=== PATIENT | female | born 1985 | race Caucasian/White ===

== ENCOUNTER 2017-03-12 08:22 | Emergency (ER) | payer SELFPAY ==
[2017-03-12 08:22] VITALS: BMI 37.5
[2017-03-12 08:29] VITALS: RESP 18; TEMP 98.3; O2SAT 99
--- NOTE | 2017-03-12 09:34 | ED PDOC ---
HPI: Abdomen Time Seen by Provider: 03/12/17 09:17 Chief Complaint (Nursing): GI Problem Chief Complaint (Provider): Abdominal pain History Per: Patient History/Exam Limitations: no limitations Onset/Duration Of Symptoms: Days (1), Intermittent Episodes Outside of [place] travel?: No Current Symptoms Are (Timing): Intermittent Episodes Pain Scale Rating Of: 8 Location Of Pain/Discomfort: Periumbilical Quality Of Discomfort: Sharp Associated Symptoms: Chills, Nausea, Vomiting, Diarrhea. denies: Fever, Back Pain, Chest Pain, Urinary Symptoms Exacerbating Factors: Food Alleviating Factors: None Last Bowel Movement: Today Additional Complaint(s): 31 year old female with past medical history of gallstones and kidney stones presents to ED with abdominal pain associated with vomiting and diarrhea. Patient states after eating soup last night, patient began with periumbilical pain, intermittent episodes with sharp pain 8/10 in severity that does not radiate. Patient states vomiting began at that time as well, 4-5 times nb/nb. Patient states diarrhea 4-5 times as well. Unable to tolerate PO at this time. Pertinent positives included chills last night. Denies brbrpr, melena, fever, hematuria, dysuria, back pain, chest pain, sob, headache, vaginal discharge. No sick contacts or recent travel. PMD: None Abnormal Vaginal Bleeding: No Last Menstral Period: 02/10/2017 : 3 Para: 3 Past Medical History Reviewed: Historical Data, Nursing Documentation, Vital Signs Vital Signs: Last Vital Signs Temp 98.3 F 03/12/17 08:29 Pulse 84 03/12/17 08:29 Resp 18 03/12/17 08:29 BP 111/64 03/12/17 08:29 Pulse Ox 99 03/12/17 09:53 - Medical History PMH: Gall Bladder Disease (gallstones), Kidney Stones - Family History Family History: States: No Known Family Hx - Home Medications Home Medications: Ambulatory Orders Medication Instructions Recorded Patient Own Med [Patient Own Med] 1 tab PO DAILY 03/18/15 Cyclobenzaprine [Cyclobenzaprine 10 mg PO TID #10 tab 06/02/16 HCl] Naproxen [Naprosyn] 500 mg PO Q12H #20 tab 06/02/16 Sulfamethoxazole/Trimethoprim 1 tab PO BID #20 tab 03/12/17 [Bactrim DS 800 mg-160 mg] - Allergies Allergies/Adverse Reactions: Allergies Allergy/AdvReac Type Severity Reaction Status Date / Time No Known Allergies Allergy Verified 03/18/15 07:54 Review of Systems ROS Statement: Except As Marked, All Systems Reviewed And Found Negative Constitutional: Positive for: Chills Gastrointestinal: Positive for: Nausea, Vomiting, Abdominal Pain, Diarrhea Physical Exam - Reviewed Nursing Documentation Reviewed: Yes Vital Signs Reviewed: Yes - Physical Exam Appears: Positive for: Well, Non-toxic, No Acute Distress Head Exam: Positive for: ATRAUMATIC, NORMAL INSPECTION, NORMOCEPHALIC Skin: Positive for: Normal Color, Warm, Dry Eye Exam: Positive for: Normal appearance, EOMI ENT: Positive for: Normal ENT Inspection, Pharynx Is (normal) Neck: Positive for: Normal, Painless ROM, Supple Cardiovascular/Chest: Positive for: Regular Rate, Rhythm Respiratory: Positive for: Normal Breath Sounds Gastrointestinal/Abdominal: Positive for: Bowel Sounds (normal), Soft, Tenderness (mild omega-umbilical), Other (psoas, obturator, and rovsing signs negative. NO RLQ/LLQ tenderness). Negative for: Organomegaly, Distended, Guarding, Rebound Back: Positive for: Normal Inspection. Negative for: L CVA Tenderness, R CVA Tenderness Extremity: Positive for: Normal ROM. 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 DDx includes but not limited to gastroenteritis, gastritis, colitis, uti Plan: * CBC * CMP * LIPASE * URINE DIPSTICK * URINE PREG * UA * ZOFRAN 4MG * MORPHINE 2MG * PEPCID 20MG * NS 1L * REEVAL Time: 1100 Patient re-examined and re-evaluated. Patient states improved symptoms. Abdominal exam improved. Labs indicative of UTI, discharge home, prescribed Bactrim DS at this time and follow up with PCP in 2-3 days without fail. Disposition - Clinical Impression Clinical Impression: UTI (urinary tract infection) - Patient ED Disposition Is Patient to be Admitted: No Counseled Patient/Family Regarding: Studies Performed, Diagnosis, Need For Followup, Rx Given - Disposition Referrals: [facility] [Outside] Disposition Time: 11:14 Condition: STABLE Prescriptions: Sulfamethoxazole/Trimethoprim [Bactrim DS 800 mg-160 mg] 1 tab PO BID #20 tab Instructions: Urinary Tract Infection in Women (ED)
[2017-03-12] MEDS ORDERED: Sodium Chloride 0.9% 1,000 ML IV SCH (09:45)
[2017-03-12 10:11] LABS: BASO % 0.2 % (0.0-2.0); EOS % 0.1 % (0.0-4.0); HEMATOCRIT 33.7 % (34.0-47.0); LYMPH # 0.7 K/uL (1.0-4.3); LYMPH % 9.1 % (20.0-40.0); MEAN CELL VOLUME 75.8 fl (81.0-99.0); MONO # 0.3 K/uL (0.0-0.8); MONO % 3.9 % (0.0-10.0); NEUT % 86.7 % (50.0-75.0); PLATELET COUNT 451 K/uL (130-400); RED CELL DISTRIBUTION WIDTH 15.3 % (11.5-14.5)
[2017-03-12 10:25] LABS: ALKALINE PHOSPHATASE 107 U/L (38-126); ALT/SGPT 23 U/L (9-52); AMYLASE 77 U/L (30-110); AST/SGOT 26 U/L (14-36); BILIRUBIN,TOTAL 0.7 mg/dl (0.2-1.3); BLOOD UREA NITROGEN 8 mg/dl (7-17); CARBON DIOXIDE 24 mmol/L (22-30); CHLORIDE 107 mmol/L (98-107); GFR AFRICAN-AMERICAN > 60; GLUCOSE,RANDOM 106 mg/dL (65-105); LIPASE 86 U/L (23-300); POTASSIUM 4.4 MMOL/L (3.6-5.0); SODIUM 141 mmol/l (132-148); TOTAL PROTEIN 7.7 G/DL (6.3-8.2)
[2017-03-12 10:47] LABS: RBC URINE 2 /hpf (0-3); URINE BACTERIA MOD (<OCC); URINE BILIRUBIN NEGATIVE (NEGATIVE); URINE BLOOD NEGATIVE (NEGATIVE); URINE COLOR YELLOW (YELLOW); URINE GLUCOSE (UA) NEG (Normal); URINE KETONE TRACE mg/dL (NEGATIVE); URINE LEUKOCYTE ESTERASE SMALL Leu/uL (Negative); URINE PROTEIN 30 mg/dL (NEGATIVE); URINE UROBILINOGEN 0.2-1.0 mg/dL (0.2-1.0); WBC URINE 28 /hpf (0-5)
[2017-03-12 11:28] VITALS: BP 100/73; PULSE 79
[2017-03-12 11:28] LABS: BASOPHIL 1 % (0-2); LARGE PLATELETS PRESENT; NEUTROPHIL 86 % (42-75); REACTIVE LYMPHOCYTES 1 % (0-0); TOTAL CELLS COUNTED 100
== END 2017-03-12 11:15 | disposition home or self-care (01) ==
LOC: H.ER 08:22
DX: N39.0 Urinary tract infection, site not specified (principal); R11.2 Nausea with vomiting, unspecified; R19.7 Diarrhea, unspecified
CPT/HCPCS: 80053; 81003; 81025; 82150; 83690; 85025; 96361; 96374; 96375; 99285; J2270; J2405; J7040

== ENCOUNTER 2017-08-18 01:05 | Emergency (ER) | payer MEDICAID ==
[2017-08-18 01:06] VITALS: BMI 37.5
[2017-08-18 01:26] VITALS: BP 139/83; PULSE 101; RESP 16; TEMP 98.4; O2SAT 98
[2017-08-18] MEDS ORDERED: DiphenhydrAMINE 50 mg/ml Inj IVP STA (02:11)
[2017-08-18] MEDS ORDERED: DiphenhydrAMINE 50 mg/ml Inj ONE (02:15)
[2017-08-18 02:38] LABS: BASO % 0.4 % (0.0-2.0); EOS # 0.3 K/uL (0.0-0.7); EOS % 3.1 % (0.0-4.0); HEMATOCRIT 31.2 % (34.0-47.0); LYMPH % 18.7 % (20.0-40.0); MEAN CELL VOLUME 77.9 fl (81.0-99.0); MEAN CORPUSCULAR HGB CONC 32.1 g/dL (33.0-37.0); MONO # 0.8 K/uL (0.0-0.8); MONO % 7.7 % (0.0-10.0); NEUT # 7.5 K/uL (1.8-7.0); NEUT % 70.1 % (50.0-75.0); NRBC % 0.1 % (0.0-0.0); RED CELL DISTRIBUTION WIDTH 15.1 % (11.5-14.5); WHITE BLOOD COUNT 10.6 K/uL (4.8-10.8)
[2017-08-18 02:45] LABS: BLOOD UREA NITROGEN 11 mg/dl (7-17); CALCIUM 8.6 mg/dL (8.4-10.2); CARBON DIOXIDE 30 mmol/L (22-30); CHLORIDE 104 mmol/L (98-107); GFR AFRICAN-AMERICAN > 60; GLUCOSE,RANDOM 113 mg/dL (65-105); POTASSIUM 3.5 MMOL/L (3.6-5.0); SODIUM 143 mmol/l (132-148)
--- NOTE | 2017-08-18 02:50 | ED PDOC ---
HPI: Allergic Reaction Time Seen by Provider: 08/18/17 01:55 Chief Complaint (Nursing): Dental Pain Chief Complaint (Provider): Facial Swelling History Per: Patient History/Exam Limitations: no limitations Onset/Duration Of Symptoms: Hrs (since last afternoon) Current Symptoms Are (Timing): Still Present Possible Cause: Unknown Associated Symptoms: Swelling (facial swelling) Home/EMS Treatment: None Additional Complaint(s): 32 year old female presents to ED with complaints of right sided facial swelling since last afternoon and has a past medical history of gall bladder disease. (-) pain, headache, or fever. Patient denies having allergies or exposure to chemicals/new foods. PCP: Non [facility] Provider Past Medical History Reviewed: Historical Data, Nursing Documentation, Vital Signs Vital Signs: Last Vital Signs Temp 98.4 F 08/18/17 01:24 Pulse 101 H 08/18/17 01:24 Resp 16 08/18/17 01:24 BP 139/83 08/18/17 01:24 Pulse Ox 98 08/18/17 01:24 - Medical History PMH: Gall Bladder Disease (gallstones), Kidney Stones - Surgical History Surgical History: - Family History Family History: States: Unknown Family Hx - Living Arrangements Living Arrangements: With Family - Social History Current smoker - smoking cessation education provided: No Ex-Smoker (has not smoked in the last 12 months): No Alcohol: None Drugs: Denies - Home Medications Home Medications: Ambulatory Orders Medication Instructions Recorded Patient Own Med [Patient Own Med] 1 tab PO DAILY 03/18/15 Cyclobenzaprine [Cyclobenzaprine 10 mg PO TID #10 tab 06/02/16 HCl] Naproxen [Naprosyn] 500 mg PO Q12H #20 tab 06/02/16 Sulfamethoxazole/Trimethoprim 1 tab PO BID #20 tab 03/12/17 [Bactrim DS 800 mg-160 mg] Clindamycin [Cleocin] 300 mg PO TID 7 Days cap 08/18/17 Ibuprofen [Motrin Tab] 600 mg PO Q6 #30 tab 08/18/17 - Allergies Allergies/Adverse Reactions: Allergies Allergy/AdvReac Type Severity Reaction Status Date / Time No Known Allergies Allergy Verified 03/18/15 07:54 Review of Systems ROS Statement: Except As Marked, All Systems Reviewed And Found Negative Constitutional: Negative for: Fever Musculoskeletal: Negative for: Other ((-) facial pain) Skin: Positive for: Other ((+) right sided facial swelling) Neurological: Negative for: Headache Physical Exam - Reviewed Nursing Documentation Reviewed: Yes Vital Signs Reviewed: Yes - Physical Exam Appears: Positive for: Non-toxic, No Acute Distress Head Exam: Positive for: ATRAUMATIC, NORMOCEPHALIC Skin: Positive for: Warm, Dry. Negative for: Normal Color ((+) right sided facial swelling. (-) erythema, tenderness, or palpable collection) Eye Exam: Positive for: Normal appearance ENT: Positive for: Normal ENT Inspection Neck: Positive for: Normal Cardiovascular/Chest: Positive for: Regular Rate, Rhythm. Negative for: Murmur Respiratory: Positive for: Normal Breath Sounds. Negative for: Respiratory Distress Gastrointestinal/Abdominal: Positive for: Normal Exam Neurologic/Psych: Positive for: Alert, Oriented. Negative for: Motor/Sensory Deficits - Laboratory Results Result Diagrams: 08/18/17 02:32 08/18/17 02:32 - ECG O2 Sat by Pulse Oximetry: 98 Disposition - Clinical Impression Clinical Impression: Dental abscess - Patient ED Disposition Is Patient to be Admitted: No - Disposition Disposition: Routine/Home Disposition Time: 05:45 Condition: STABLE Prescriptions: Clindamycin [Cleocin] 300 mg PO TID 7 Days cap Ibuprofen [Motrin Tab] 600 mg PO Q6 #30 tab Instructions: Dental Abscess (ED) Forms: [employer] (Wolof) Medical Decision Making Medical Decision Makin Initial impression: allergic reaction v facial abscess Initial plan: * Labs * Benadryl 50mg IVP * Pepcid 20mg IVP * Solumedrol 125mg IVP * Re-eval 0545 CT FINDINGS Bones/joints: No acute fracture. Soft tissues: There is right omega-maxillary and perimandibular soft tissue swelling with infiltration representing cellulitis. There is inflammatory change around the right-sided disintegrator feeder muscles may represent myositis secondary to dental disease. Correlation with clinical examination is recommended. Lymph nodes: Submental submandibular and cervical chain lymph nodes. Orbits: Unremarkable. Sinuses: Mild bilateral maxillary sinus disease. Left maxillary sinus mucous retention cyst and/or polyp. No air-fluid levels. Dental: There is carious destruction of the left mandibular third molar with periapical lucency. There are multiple carious destruction of the teeth involving the right maxilla and the maxillary anterior teeth with periapical abscess. There is possible right maxillary mucobuccal fold heterogeneous hypodensity which is asymmetrically prominent as compared to the left seen on image 21 series 604. The possibility of extension of the dental abscess into the mucobuccal fold cannot be excluded if clinically suspected. Correlation with physical examination is recommended. Right maxillary periodontal and periapical lucency as well as bilateral mandibular lucencies along the premolars representing multifocal dental abscess versus periodontal disease. There is evidence of an endodontic treatment of the maxillary anterior teeth. The visualized portions of the brain appears unremarkable. IMPRESSION: 1. There is carious destruction of the left mandibular third molar with periapical lucency. There are multiple carious destruction of the teeth involving the right maxilla and the maxillary anterior teeth with periapical abscess. 2. There is right omega-maxillary and perimandibular soft tissue swelling with infiltration representing cellulitis. There is inflammatory change around the right-sided disintegrator feeder muscles may represent myositis secondary to dental disease. Correlation with clinical examination is recommended. 3. There is possible right maxillary mucobuccal fold heterogeneous hypodensity which is asymmetrically prominent as compared to the left seen on image 21 series 604. The possibility of extension of the dental abscess into the mucobuccal fold cannot be excluded if clinically suspected. Correlation with physical examination is recommended. Upon re-evaluation, patient states that she is feeling better. Patient is stable for discharge home and will follow up with a dentist later today. Scribe Attestation: Documented by Tamra Hallman acting as a scribe for Danielito Del Rosario MD. Scribe Attestation: All medical record entries made by the Scribe were at my direction and personally dictated by me. I have reviewed the chart and agree that the record accurately reflects my personal performance of the history, physical exam, medical decision making, and the department course for this patient. I have also personally directed, reviewed, and agree with the discharge instructions and disposition.
[2017-08-18] MEDS ORDERED: Sodium Chloride 0.9% 50 ML IV ONE (04:28)
[2017-08-18] MEDS ORDERED: Iohexol 300 100 ML IJ ONE (04:28)
--- NOTE | 2017-08-18 10:44 | CT ---
PROCEDURE: CT MAXILLOFACIAL BONES WITH CONTRAST HISTORY: R sided facial swelling COMPARISON: None. TECHNIQUE: Contiguous axial CT images of the maxillofacial bones were obtained following administration of IV contrast. Coronal and sagittal reformats were generated. Intravenous contrast Dose: Omnipaque 300, 95 cc. Radiation dose: Total exam DLP = 852.70 mGy-cm. This CT exam was performed using one or more of the following dose reduction techniques: Automated exposure control, adjustment of the mA and/or kV according to patient size, and/or use of iterative reconstruction technique. FINDINGS: NASAL BONES: Unremarkable. ORBITS: Unremarkable. PARANASAL SINUSES/ MASTOIDS: Clear. MAXILLA: There is moderate soft tissue edema overlying the right mid to posterior maxillae and extending inferiorly to mildly overlie the right side of the horizontal component of the right mandible. Superficial and deep subcutaneous fatty reaction is the primary feature. The overall pattern is compatible cellulitis. This is likely a function of dental infection with a few roots remaining from the right maxillary 3rd molar which are the only remnants of the tooth. A periapical abscess is associated may extend into the mucoid local fold direct visualization is advised. There also some root remaining is only residual from the 1st molar with a joint apical abscess bridging the two in the maxilla. Additional apical abscesses affects a right premolar root as well. There is borderline inferior right temporalis muscle myositis. Additional dental disease appreciated including advanced carious disease throughout various teeth throughout the mouth as well as additional apical abscesses at the left maxilla and bilateral mandibular tooth roots as well. MANDIBLE/ TEMPOROMANDIBULAR JOINTS: Bony mandible findings are as discussed above which are primarily dental in nature. The temporomandibular joints appear intact. Note is made of shotty right greater the left submandibular lymph nodes. And borderline right jugular digastric lymphadenopathy. SKULL BASE: Unremarkable. TEMPORAL BONES: Middle ears and mastoid grossly unremarkable. OTHER FINDINGS: None. IMPRESSION: 1. Findings most compatible with moderate right perimaxillary greater than perimandibular cellulitis likely is a function of marked dental infectious processes including the 1st and 3rd molars which are largely eroded with only residual roots affected by AP periapical abscesses with the 3rd molar root abscesses potentially extending into the right maxillary mucobuccal fold. Borderline right temporalis muscle myositis inferiorly. 2. Gross dental disease identified in addition as discussed above. Clinical/dental correlation is advised. Concordant preliminary report from [facility], 08/18/2017.
== END 2017-08-18 06:42 | disposition home or self-care (01) ==
LOC: H.ER 01:05
DX: R22.0 Localized swelling, mass and lump, head (principal)
CPT/HCPCS: 70488; 80048; 85025; 96374; 96375; 99282; J1200; J2930; Q9967

== ENCOUNTER 2017-09-23 08:40 | Emergency (ER) | payer MEDICAID ==
[2017-09-23 08:43] VITALS: BMI 34.5
[2017-09-23 08:45] VITALS: RESP 17; TEMP 97.6
--- NOTE | 2017-09-23 09:25 | ED PDOC ---
HPI: Female Pain Time Seen by Provider: 09/23/17 09:13 Chief Complaint (Nursing): Abdominal Pain Chief Complaint (Provider): Pelvic cramping History Per: Patient History/Exam Limitations: no limitations Onset/Duration Of Symptoms: Days (Yesterday) Current Symptoms Are (Timing): Still Present Additional Complaint(s): Pelvic cramps like her period. No nausea, vomit, vaginal bleeding, dysuria. 8wks preg. Past Medical History Reviewed: Nursing Documentation, Vital Signs Vital Signs: Last Vital Signs Temp 97.6 F 09/23/17 08:43 Pulse 71 09/23/17 08:43 Resp 17 09/23/17 08:43 BP 103/56 L 09/23/17 08:43 Pulse Ox 98 09/23/17 08:57 - Medical History PMH: No Chronic Diseases - Surgical History Surgical History: - Family History Family History: States: Unknown Family Hx - Living Arrangements Living Arrangements: With Family - Social History Current smoker - smoking cessation education provided: No Alcohol: None Drugs: Denies - Home Medications Home Medications: Ambulatory Orders Medication Instructions Recorded Patient Own Med [Patient Own Med] 1 tab PO DAILY 03/18/15 Cyclobenzaprine [Cyclobenzaprine 10 mg PO TID #10 tab 06/02/16 HCl] Naproxen [Naprosyn] 500 mg PO Q12H #20 tab 06/02/16 Sulfamethoxazole/Trimethoprim 1 tab PO BID #20 tab 03/12/17 [Bactrim DS 800 mg-160 mg] Clindamycin [Cleocin] 300 mg PO TID 7 Days cap 08/18/17 Ibuprofen [Motrin Tab] 600 mg PO Q6 #30 tab 08/18/17 Nitrofurantoin Macrocrystals 100 mg PO BID #10 cap 09/23/17 [Macrobid] - Allergies Allergies/Adverse Reactions: Allergies Allergy/AdvReac Type Severity Reaction Status Date / Time No Known Allergies Allergy Verified 09/23/17 08:57 Review of Systems ROS Statement: Except As Marked, All Systems Reviewed And Found Negative Genitourinary Female: Positive for: Pelvic Pain Physical Exam - Reviewed Nursing Documentation Reviewed: Yes Vital Signs Reviewed: Yes - Physical Exam Appears: Positive for: Non-toxic, No Acute Distress Head Exam: Positive for: ATRAUMATIC, NORMAL INSPECTION, NORMOCEPHALIC Skin: Positive for: Normal Color, Warm, DRY Eye Exam: Positive for: EOMI, Normal appearance, PERRL ENT: Positive for: Normal ENT Inspection Neck: Positive for: Normal, Painless ROM Cardiovascular/Chest: Positive for: Regular Rate, Rhythm Respiratory: Positive for: CNT, Normal Breath Sounds Gastrointestinal/Abdominal: Positive for: Bowel Sounds, Soft, Tenderness (mild across) Back: Positive for: Normal Inspection Extremity: Positive for: Normal ROM Neurologic/Psych: Positive for: Alert, Oriented - Laboratory Results Result Diagrams: 09/23/17 09:40 09/23/17 09:40 Interpretation Of Abn Labs: no acute - ECG O2 Sat by Pulse Oximetry: 98 Pulse Ox Interpretation: Normal - CT Scan/US us Other Rad Studies (CT/US): Read By Radiologist Other Rad Interpretation: subchorionic bleed and iup - Progress ED Course And Treament: 1356: Stable. AAOx3. Pain free. Tolerated PO. Fu with pcp. Disposition - Clinical Impression Clinical Impression: Subchorionic bleed, Threatened , UTI (urinary tract infection) - Patient ED Disposition Is Patient to be Admitted: No Counseled Patient/Family Regarding: Studies Performed, Diagnosis, Need For Followup, Rx Given - [facility] - [facility]17 Disposition: Routine/Home Disposition Time: 13:47 Condition: STABLE Additional Instructions: Return if not better in 3 days. Prescriptions: Nitrofurantoin Macrocrystals [Macrobid] 100 mg PO BID #10 cap Instructions: Urinary Tract Infection in (ED), Subchorionic Hemorrhage (ED), Threatened Miscarriage (ED) Forms: [email or web address] (H[place]ian), [facility] ED School/Work Excuse
[2017-09-23 09:47] LABS: BASO % 0.3 % (0.0-2.0); EOS % 0.4 % (0.0-4.0); HEMATOCRIT 31.6 % (34.0-47.0); LYMPH # 1.5 K/uL (1.0-4.3); LYMPH % 14.4 % (20.0-40.0); MEAN CELL VOLUME 76.9 fl (81.0-99.0); MEAN CORPUSCULAR HEMOGLOBIN 25.9 pg (27.0-31.0); MEAN CORPUSCULAR HGB CONC 33.7 g/dL (33.0-37.0); MEAN PLATELET VOLUME 7.2 fl (7.2-11.7); MONO # 0.5 K/uL (0.0-0.8); MONO % 4.8 % (0.0-10.0); NEUT # 8.2 K/uL (1.8-7.0); NEUT % 80.1 % (50.0-75.0); NRBC % 0.1 % (0.0-0.0); RED CELL DISTRIBUTION WIDTH 15.2 % (11.5-14.5); WHITE BLOOD COUNT 10.3 K/uL (4.8-10.8)
[2017-09-23 10:03] LABS: RBC URINE 26 /hpf (0-3); URINE BACTERIA FEW (<OCC); URINE BILIRUBIN NEGATIVE (NEGATIVE); URINE BLOOD SMALL (NEGATIVE); URINE COLOR YELLOW (YELLOW); URINE GLUCOSE (UA) NEG (Normal); URINE KETONE TRACE mg/dL (NEGATIVE); URINE LEUKOCYTE ESTERASE LARGE Leu/uL (Negative); URINE PROTEIN NEGATIVE (NEGATIVE); URINE UROBILINOGEN 0.2-1.0 mg/dL (0.2-1.0); WBC URINE 172 /hpf (0-5)
[2017-09-23 10:04] LABS: ALB/GLOB RATIO 1.1 (1.0-2.1); ALKALINE PHOSPHATASE 79 U/L (38-126); ALT/SGPT 22 U/L (9-52); AST/SGOT 15 U/L (14-36); BILIRUBIN,TOTAL 0.4 mg/dl (0.2-1.3); BLOOD UREA NITROGEN 8 mg/dl (7-17); CALCIUM 8.9 mg/dL (8.4-10.2); CARBON DIOXIDE 24 mmol/L (22-30); CHLORIDE 107 mmol/L (98-107); GFR AFRICAN-AMERICAN > 60; GLUCOSE,RANDOM 90 mg/dL (65-105); POTASSIUM 4.3 MMOL/L (3.6-5.0); SODIUM 140 mmol/l (132-148); TOTAL PROTEIN 7.3 G/DL (6.3-8.2)
--- NOTE | 2017-09-23 12:34 | US ---
PROCEDURE: First trimester ultrasound HISTORY: pain of COMPARISON: None TECHNIQUE: Standard protocol for this study/examination. FINDINGS: LMP: 07/29/2017 Prior examinations from the current : None TECHNIQUE: Real-time 2D imaging, duplex and color Doppler. FINDINGS: Cardiac activity: Present Rate: 133 BPM Measurements: [place] rump length: 1.03 cm Gestational age based on CRL 7 weeks 1 day Gestational age based on gestational sac measurement 6 weeks 4 days Gestational age derived from LMP: 8 weeks JAIRO based on LMP: 05/05/2018 JAIRO based on biometry: 760 Gestational concordance documented Yolk sac identified Uterus: Unremarkable. No Cervical abnormalities: Negative examination for cervical dilatation or effacement. Closed cervix measuring 3.1 cm Subchorionic hemorrhage: 2 small areas of subchorionic hemorrhage interposed between the gestational sac at in the right lateral wall of the uterus neither larger than 5 mm. UTERUS: 5.8 x 7.3 x 9.4 cm. ADNEXA: Right: 1.5 x 2.1 x 2.3 cm. Normal Doppler arterial waveform documented. Left: 0.9 x 3.4 x 3.8 cm. Simple cyst 1.2 x 1.7 cm Normal Doppler arterial waveform documented Fluid in the cul-de-sac: None IMPRESSION: Six weeks 6 days live intrauterine gestation. Gestational concordance noted. Small foci (2) of subchorionic hemorrhage neither larger than 5 mm.
[2017-09-23 14:25] VITALS: BP 102/55; PULSE 67; O2SAT 100
== END 2017-09-23 14:27 | disposition home or self-care (01) ==
LOC: H.ER 08:40
DX: O20.0 Threatened abortion (principal); O23.40 Unspecified infection of urinary tract in pregnancy, unspecified trimester

== ENCOUNTER 2017-10-18 08:26 | Emergency (ER) | payer MEDICAID ==
[2017-10-18 08:26] VITALS: BMI 34.5
[2017-10-18 08:40] VITALS: BP 106/63; PULSE 73; RESP 18; TEMP 98; O2SAT 98
--- NOTE | 2017-10-18 09:45 | ED PDOC ---
HPI: Abdomen Time Seen by Provider: 10/18/17 09:18 Chief Complaint (Nursing): Abdominal Pain Chief Complaint (Provider): Abdominal Pain History Per: Patient History/Exam Limitations: no limitations Onset/Duration Of Symptoms: Days (x1) Current Symptoms Are (Timing): Still Present Pain Scale Rating Of: 2 Location Of Pain/Discomfort: Other (mid abdomen) Quality Of Discomfort: Cramping Associated Symptoms: Nausea, Diarrhea (watery) Additional Complaint(s): Rosi Kennedy is a 32 year old female, with a past medical history of gallstones and kidney stones, who presents to the emergency department complaining of intermittent mid abdominal pain associated with nausea, and multiple episodes watery diarrhea onset since yesterday. She describes the pain as cramps. She reports episodes of diarrhea and nausea after eating or drinking. Patient is x3 months and had an ultrasound done here x1 month ago. She reports an ectopic removal. She denies any sick contacts, fever, chills, vomit, dysuria or vaginal bleeding. No further medical complaints. PMD: None provided. : 5 Para: 3 Miscarriage: 1 Past Medical History Reviewed: Historical Data, Nursing Documentation, Vital Signs Vital Signs: Last Vital Signs Temp 98 F 10/18/17 08:38 Pulse 73 10/18/17 08:38 Resp 18 10/18/17 08:38 BP 106/63 10/18/17 08:38 Pulse Ox 98 10/18/17 15:19 - Medical History PMH: Gall Bladder Disease (gallstones), Kidney Stones - Surgical History Surgical History: - Family History Family History: States: Unknown Family Hx - Social History Current smoker - smoking cessation education provided: No Alcohol: None Drugs: Denies - Home Medications Home Medications: Ambulatory Orders Medication Instructions Recorded Patient Own Med [Patient Own Med] 1 tab PO DAILY 03/18/15 Cyclobenzaprine [Cyclobenzaprine 10 mg PO TID #10 tab 06/02/16 HCl] Naproxen [Naprosyn] 500 mg PO Q12H #20 tab 06/02/16 Sulfamethoxazole/Trimethoprim 1 tab PO BID #20 tab 03/12/17 [Bactrim DS 800 mg-160 mg] Clindamycin [Cleocin] 300 mg PO TID 7 Days cap 08/18/17 Ibuprofen [Motrin Tab] 600 mg PO Q6 #30 tab 08/18/17 Nitrofurantoin Macrocrystals 100 mg PO BID #10 cap 09/23/17 [Macrobid] - Allergies Allergies/Adverse Reactions: Allergies Allergy/AdvReac Type Severity Reaction Status Date / Time No Known Allergies Allergy Verified 09/23/17 08:57 Review of Systems ROS Statement: Except As Marked, All Systems Reviewed And Found Negative Constitutional: Negative for: Fever, Chills Gastrointestinal: Positive for: Nausea, Abdominal Pain (intermittent mid cramp) , Diarrhea (watery). Negative for: Vomiting Genitourinary Female: Negative for: Dysuria, Vaginal Bleeding Physical Exam - Reviewed Nursing Documentation Reviewed: Yes Vital Signs Reviewed: Yes - Physical Exam Appears: Positive for: Well, Non-toxic, No Acute Distress Head Exam: Positive for: ATRAUMATIC, NORMAL INSPECTION Skin: Positive for: Normal Color, Warm, Dry Eye Exam: Positive for: Normal appearance, EOMI Neck: Positive for: Painless ROM, Supple Cardiovascular/Chest: Positive for: Regular Rate, Rhythm. Negative for: Murmur Respiratory: Positive for: Normal Breath Sounds. Negative for: Respiratory Distress Gastrointestinal/Abdominal: Positive for: Soft, Tenderness (mild epigastric) Back: Negative for: L CVA Tenderness, R CVA Tenderness Extremity: Positive for: Normal ROM. Negative for: Deformity, Swelling Neurologic/Psych: Positive for: Alert, Oriented - Laboratory Results Result Diagrams: 10/18/17 09:55 10/18/17 09:55 - ECG O2 Sat by Pulse Oximetry: 98 (RA) Pulse Ox Interpretation: Normal - Progress Re-evaluation Time: 15:00 Condition: Re-examined, Improved Medical Decision Making Medical Decision Making: Initial Impression: abdominal pain and diarrhea in female. Differential includes but not limited to: acute gastroenteritis and complications Initial Plan: --Comp Metabolic Panel --Lipase --Urine --CBC w/ differential --NS IV 1,000 ml @ 1,000 mls/hr --Zofran Inj 4 mg IVP --OB , limited [US] --reevaluation 14:44 Obstetrics US FINDINGS: UTERUS: Gestational sac: A single intrauterine gestation is identified once again with cardiac activity. Heart rate: 162 bpm. age (Ultrasound estimated): 10 weeks 6 days by mean crown-rump length. Sharda-gestational hemorrhage: None definitely shown. Date of delivery (Ultrasound estimated) : 05/12/2018. Normal interval growth has been demonstrated by current study as compared to the prior carotid ultrasound dated 09/23/2017 in which a 7 week 1 day CRL based gestational age was calculated. Uterus measures 11.3 x 6.9 x 8.0 cm with expected larger size now appreciated but no interval myometrial lesion evident grossly. Cervix measures 3.7 cm without focal lesion as well. CERVIX: Long and closed. No cervical abnormality seen. RIGHT OVARY: Not seen sonographically. LEFT OVARY: Measures 2.2 x 1.7 x 1.9 cm. No solid mass. Normal flow. FREE FLUID: None. OTHER FINDINGS: None. IMPRESSION: A single viable intrauterine gestation is again identified with average ultrasonic age of 10 weeks 6 days right, representing normal growth compared to prior apparent ultrasound 09/23/2017, as discussed above. No definite pattern to suggest subchorionic or other hemorrhage grossly. Right ovary is not identified. Left ovary appears unremarkable. Clinical follow-up is recommended. Scribe Attestation: Documented by Vitor Sanchez, acting as a scribe for Chay Mancuso MD Provider Scribe Attestation: All medical record entries made by the Scribe were at my direction and personally dictated by me. I have reviewed the chart and agree that the record accurately reflects my personal performance of the history, physical exam, medical decision making, and the department course for this patient. I have also personally directed, reviewed, and agree with the discharge instructions and disposition. Disposition - Clinical Impression Clinical Impression: Abdominal pain in female, Diarrhea, - Patient ED Disposition Is Patient to be Admitted: No Doctor Will See Patient In The: Office Counseled Patient/Family Regarding: Studies Performed, Diagnosis, Need For Followup - Disposition Referrals: [facility] [Outside] Disposition: Routine/Home Disposition Time: 15:18 Condition: GOOD Additional Instructions: Follow up with your PCP in 2-3 days. Instructions: Gastroenteritis (ED)
[2017-10-18] MEDS ORDERED: Sodium Chloride 0.9% 1,000 ML IV STA (09:51)
[2017-10-18 10:04] LABS: BASO % 0.2 % (0.0-2.0); EOS % 0.2 % (0.0-4.0); HEMATOCRIT 31.8 % (34.0-47.0); LYMPH # 0.7 K/uL (1.0-4.3); MEAN CELL VOLUME 77.7 fl (81.0-99.0); MEAN CORPUSCULAR HEMOGLOBIN 25.7 pg (27.0-31.0); MEAN CORPUSCULAR HGB CONC 33.1 g/dL (33.0-37.0); MEAN PLATELET VOLUME 7.4 fl (7.2-11.7); MONO # 0.3 K/uL (0.0-0.8); MONO % 5.8 % (0.0-10.0); NEUT # 4.7 K/uL (1.8-7.0); NEUT % 81.8 % (50.0-75.0); NRBC % 0.1 % (0.0-0.0); RED CELL DISTRIBUTION WIDTH 15.2 % (11.5-14.5); WHITE BLOOD COUNT 5.7 K/uL (4.8-10.8)
[2017-10-18 10:14] LABS: ALKALINE PHOSPHATASE 82 U/L (38-126); ALT/SGPT 29 U/L (9-52); AST/SGOT 19 U/L (14-36); BILIRUBIN,TOTAL 0.5 mg/dl (0.2-1.3); BLOOD UREA NITROGEN 9 mg/dl (7-17); CARBON DIOXIDE 21 mmol/L (22-30); CHLORIDE 106 mmol/L (98-107); GFR AFRICAN-AMERICAN > 60; GLUCOSE,RANDOM 97 mg/dL (65-105); LIPASE 91 U/L (23-300); POTASSIUM 3.9 MMOL/L (3.6-5.0); SODIUM 139 mmol/l (132-148); TOTAL PROTEIN 7.8 G/DL (6.3-8.2)
--- NOTE | 2017-10-18 14:46 | US ---
PROCEDURE: OB Pelvic Ultrasound HISTORY: abdominal pain COMPARISON: Transabdominal ultrasound examination dated 09/23/2017 FINDINGS: UTERUS: Gestational sac: A single intrauterine gestation is identified once again with cardiac activity. Heart rate: 162 bpm. age (Ultrasound estimated): 10 weeks 6 days by mean crown-rump length. Sharda-gestational hemorrhage: None definitely shown. Date of delivery (Ultrasound estimated) : 05/12/2018. Normal interval growth has been demonstrated by current study as compared to the prior carotid ultrasound dated 09/23/2017 in which a 7 week 1 day CRL based gestational age was calculated. Uterus measures 11.3 x 6.9 x 8.0 cm with expected larger size now appreciated but no interval myometrial lesion evident grossly. Cervix measures 3.7 cm without focal lesion as well. CERVIX: Long and closed. No cervical abnormality seen. RIGHT OVARY: Not seen sonographically. LEFT OVARY: Measures 2.2 x 1.7 x 1.9 cm. No solid mass. Normal flow. FREE FLUID: None. OTHER FINDINGS: None. IMPRESSION: A single viable intrauterine gestation is again identified with average ultrasonic age of 10 weeks 6 days right, representing normal growth compared to prior apparent ultrasound 09/23/2017, as discussed above. No definite pattern to suggest subchorionic or other hemorrhage grossly. Right ovary is not identified. Left ovary appears unremarkable. Clinical follow-up is recommended.
--- NOTE | 2017-10-21 19:37 | CARD ---
APPROVED REPORT EKG Measurement Heart [id number] <Conclusion> Normal sinus rhythm Nonspecific ST abnormality Abnormal ECG
== END 2017-10-18 15:37 | disposition home or self-care (01) ==
LOC: H.ER 08:26
DX: Z33.1 Pregnant state, incidental (principal)
CPT/HCPCS: 76815; 80053; 81025; 83690; 85025; 96361; 96374; 99283; J2405; J7040

== ENCOUNTER 2018-02-22 03:56 | Emergency (ER) | payer MEDICAID ==
[2018-02-22 04:35] VITALS: BMI 37.2
[2018-02-22 05:04] LABS: SQUAMOUS EPITHIAL 2 /hpf (0-5); URINE BACTERIA OCC (<OCC); URINE BILIRUBIN NEGATIVE (NEGATIVE); URINE BLOOD SMALL (NEGATIVE); URINE CLARITY CLOUDY (Clear); URINE COLOR YELLOW (YELLOW); URINE GLUCOSE (UA) NEG (Normal); URINE LEUKOCYTE ESTERASE LARGE Leu/uL (Negative); URINE PROTEIN 100 mg/dL (NEGATIVE)
--- NOTE | 2018-02-22 07:59 | OBHP ---
Datetime: 02/22/2018 05:20 IP Adm Impression: , intrauterine IP Admit Plan: Observation/Evaluation; Discharge home Admit Comment, IP Provider: This is 32 y/o F, , IUP at 28.5 comes to the [facility] c/o right lower la teral back pain. pain started at 1030pm while watching TV at home, 8/10, constant, sharp and movement s make it worse. Patient denies any urinary symptoms, ROS unremarkable. Denies CTX/LOF/BV, good FM PNC: Dr. Carrillo PMH: UTI PSH: 1xc-section and ectopic OB: 1 , 1 ectopic, 2xNVD FT Sex: intercourse 2 days ago Meds: PNV Allg: NKDA SH: denies alcohol, smokign or drug use FH: denies VS: Reviewed PE: as above, mild lateral back tenderness A/P: 32 y/o F, , IUP at 28.5 comes to the [facility] c/o right lower lateral back pain. - UA - VS/NST/FHR - Reevaluation Case discussed with Dr. Hill --- Kennedy Meneses, PGY-1 UA is + for UTI Microbid BID for 7 days given to patient Follow up with PMD -Case discussed with Dr. Srivastava --- Kennedy Aleman, PGY-[address] Srivastava: I have evaluated the patient independently and I agree with the above Extremities - PN: Normal Abdomen - PN: Normal Back - PN: Normal Lungs - PN: Normal Heart - PN: Normal Thyroid - PN: Normal Neurologic - PN: Normal HEENT - PN: Normal General - PN: Normal FHR - Baseline A Provider: 140 EGA AdmitDate IP: 28.5 Vital Signs Provider: Reviewed; Within Normal Limits IP Chief Complaint: Signs/symptoms UTI NICHD Variability Prov Fetus A: Moderate 6-25bpm NICHD Accel Fetus A IP Provider: [id number] FHR Category Provider Fetus A: Category I NICHD Decel Fetus A IP Provider: None
--- NOTE | 2018-02-22 07:59 | OBDCSUM ---
Datetime: 02/22/2018 05:35 Discharged to, Provider: Home Follow up at, Provider: Dr Carrillo Disch Instr Activity: Normal activity Disch Instr Diet: Regular Discharge Time: 02/22/2018 05:40 Follow up in weeks, Provider: next week as scheduled Disch Referrals: None
[2018-02-22 09:53] VITALS: BP 100/64; PULSE 95; RESP 18; TEMP 97.9
== END 2018-02-22 05:40 | disposition home or self-care (01) ==
LOC: H.EROB2 03:56
DX: O26.93 Pregnancy related conditions, unspecified, third trimester (principal); M54.5 Low back pain; Z3A.28 28 weeks gestation of pregnancy; Z87.59 Personal history of other complications of pregnancy, childbirth and the puerperium; O09.13 Supervision of pregnancy with history of ectopic pregnancy, third trimester